=== PATIENT | female | born 1975 | race Caucasian/White ===

== ENCOUNTER → 2021-04-23 | Outpatient (CLI) | payer OTHER ==
--- NOTE | 2021-04-24 08:43 | CT ---
EXAMINATION TYPE: CT abdomen pelvis wo con DATE OF EXAM: 04/23/2021 COMPARISON: None HISTORY: 45-year-old female K56.09 , small bowel obstruction. Anterior abdominal swelling, history of prior hernia CT DLP: 584.7 mGycm. Automated exposure control for dose reduction was used. TECHNIQUE: Contiguous axial scanning of the abdomen and pelvis without IV contrast. Coronal and sagit bettye reconstructions performed. FINDINGS: Heart normal size without pericardial effusion. Lung bases clear without pleural effusion. Liver shows diffuse low attenuation compatible with fatty infiltration. Cholecystectomy clips. Low-density 1.2 cm nodule of the left adrenal gland. Attenuation characteristics suggest a benign lip id rich adrenal adenoma. 3 mm nonobstructive left renal calculus. Right kidney, right adrenal gland, spleen, and pancreas show no gross abnormality by noncontrast CT. No dilated small bowel, free fluid, or free air. No mesenteric or retroperitoneal lymphadenopathy. Mild stool burden. Normal appendix. No pericolonic inflammatory change. Mildly redundant sigmoid colo n. Uterus is retroverted. Possible 3.4 cm nodule arising from the left ovary. Right ovary is visualized. Bilateral tubal ligati on clips. Bladder partially distended. No abnormal fluid collection in the pelvis or pelvic lymphaden opathy. No ventral abdominal wall hernia is identified. Bones: Moderate degenerative disc disease L5-S1. IMPRESSION: 1. Possible 3.4 cm nodule arising from the left ovary. Pelvic ultrasound recommended to further eval uate. Hemorrhagic cyst/corpus luteum is possible. 2. Hepatic steatosis; prior cholecystectomy; a 1.2 cm benign, lipid rich left adrenal adenoma; and a 3 mm nonobstructive left renal calculus.
== END | disposition home or self-care (01) ==
LOC: RADCTMAIN 12:11
PROVIDERS: ATTEND Surgery Plastic and Reconstructive Surgery
DX: K76.0 Fatty (change of) liver, not elsewhere classified (principal); N20.0 Calculus of kidney; D35.02 Benign neoplasm of left adrenal gland; Z87.442 Personal history of urinary calculi
CPT/HCPCS: 74176